=== PATIENT | male | born 1980 | race Caucasian/White ===

== ENCOUNTER 2020-09-14 23:58 | Inpatient (IN) | payer SELFPAY ==
[2020-09-15] VITALS (31 sets, daily range): BP systolic 106–134; BP diastolic 65–92; PULSE 49–98; RESP 13–21; TEMP 36.2–37.2; O2SAT 92–100; BMI 23.6
--- NOTE | 2020-09-15 00:51 | CTR_ITS ---
PROCEDURE INFORMATION: Exam: CT Abdomen And Pelvis With Contrast Exam date and time: 09/15/2020 1:10 AM Age: 40 years old Clinical indication: Abdominal pain; Localized; Right lower quadrant (rlq); Additional info: Rlq pain TECHNIQUE: Imaging protocol: Computed tomography of the abdomen and pelvis with contrast. Radiation optimization: All CT scans at this facility use at least one of these dose optimization techniques: automated exposure control; mA and/or kV adjustment per patient size (includes targeted exams where dose is matched to clinical indication); or iterative reconstruction. Contrast material: OMNI 300; Contrast volume: 95 ml; Contrast route: INTRAVENOUS (IV); COMPARISON: No relevant prior studies available. RADIATION DOSE METRICS: Total DLP (mGy-cm): 883.02 FINDINGS: Lungs: The lung bases are clear. No effusion Liver: Normal. No mass. Gallbladder and bile ducts: No wall thickening, pericholecystic fluid or stones. Pancreas: Normal. No ductal dilation. Spleen: Normal. No splenomegaly. Adrenal glands: Normal. No mass. Kidneys and ureters: Normal. No hydronephrosis. Stomach and bowel: Unremarkable. No obstruction. No mucosal thickening. Appendix: There is a large amount of pericecal and periappendiceal fat stranding and inflammatory change. There is a 31 x 17 x 9 mm periappendiceal abscess. Intraperitoneal space: Small amount of free fluid is present in the pelvis. Vasculature: Unremarkable. No abdominal aortic aneurysm. Lymph nodes: Unremarkable. No enlarged lymph nodes. Urinary bladder: Unremarkable as visualized. Reproductive: Unremarkable as visualized. Bones/joints: Unremarkable. No acute fracture. Soft tissues: Unremarkable. CT/CT abdomen pelvis w con* [id number] IMPRESSION: 1. Perforated appendicitis with 31 x 17 x 9 mm periappendiceal abscess. 2. Small amount of free fluid in the pelvis. Radiation Dose CTDIVOL = (mGy): DLP = 883.02 (mGy-cm)
[2020-09-15] MEDS: ketorolac 30 mg/mL INJ IVP (01:08)
[2020-09-15 01:23] LABS: Basophils % 0.3 %; Eosinophils # 0.2 10^3/uL (0.0-0.8); Eosinophils % 1.5 %; Hematocrit 45.6 % (42.0-52.0); Hemoglobin 14.8 g/dL (11.7-16.6); Lymphocytes # 1.4 10^3/uL (0.8-4.8); Lymphocytes % 11.1 %; Mean Corpuscular HGB Conc 32.5 g/dL (30.0-36.0); Mean Corpuscular Hemoglobin 28.6 pg (28.0-34.0); Mean Platelet Volume 10.4 fL (7.4-10.4); Monocytes # 1.3 10^3/uL (0.2-0.9); Monocytes % 10.8 %; Nucleated Red Blood Cells % 0 %; Platelet Count 239 10^3/cmm (130-400); Red Blood Count 5.18 10^6/uL (4.1-5.3); Red Cell Distribution Width 11.9 % (12.1-15.1); White Blood Count 12.4 10^3/uL (4.0-10.0)
[2020-09-15 01:41] LABS: Alanine Aminotransferase 11 U/L (0-41); Albumin Level 4.2 g/dL (3.5-5.2); Alkaline Phosphatase 83 IU/L (40-130); Aspartate Amino Transferase 14 U/L (0-40); Blood Urea Nitrogen 14 mg/dL (6-20); C Reactive Protein 73.9 mg/L (0.0-4.9); Calcium 9.6 mg/dL (8.5-10.5); Carbon Dioxide 31 mmol/L (22-29); Chloride 95 mmol/L (98-107); Globulin 3.6 g/dL (1.3-4.6); Glomerular Filtration Rate 125.5 mL/min (90-130); Glucose 110 mg/dL (65-115); Lipase 18 U/L (13-60); Osmolality Calculated 281 mOsm/kg (285-295); Sodium 135 mmol/L (136-145); Total Bilirubin 1.4 mg/dL (0.15-1.2); Total Protein 7.8 g/dL (6.6-8.7)
[2020-09-15] MEDS: iohexol 300 mg/mL 100 mL Btl IV (01:54)
--- NOTE | 2020-09-15 03:03 | PC.NURSE ---
patient refused both Zofran and Morphine at 0108
[2020-09-15] MEDS: piperacillin-tazobactam 3.375 GM in sodium chloride 0.9% (plus) 50 ML IV ×2 (04:14→15:56)
--- NOTE | 2020-09-15 06:27 | P.HP_ITS ---
Providers/Chief Complaint Admitting Physician: Kostas Hu MD Chief Complaint: lower ab pain, pt states appendicitus History of Present Illness Mr. Jimy Osborne is a pleasant 40 year old male otherwise healthy presents to the emergency department with worsening right-sided abdominal pain associated with chills and low-grade temperature. Patient reported that he thought he had some constipation and he had something for that and he moved his bowels but that did not help much with his pain. Initially had discomfort in the epigastric area and then the pain was more localized towards the right side. Pain is more dull aching and sharp and started about 4 to 5 days ago and just got worse. Patient has not referred and he decided to come to the emergency department for further evaluation and management. Further work-up in the emergency department showed leukocytosis of 12.[address] scan of the abdomen and pelvis that showed: Lungs: The lung bases are clear. No effusion Liver: Normal. No mass. Gallbladder and bile ducts: No wall thickening, pericholecystic fluid or stones. Pancreas: Normal. No ductal dilation. Spleen: Normal. No splenomegaly. Adrenal glands: Normal. No mass. Kidneys and ureters: Normal. No hydronephrosis. Stomach and bowel: Unremarkable. No obstruction. No mucosal thickening. Appendix: There is a large amount of pericecal and periappendiceal fat stranding and inflammatory change. There is a 31 x 17 x 9 mm periappendiceal abscess. Intraperitoneal space: Small amount of free fluid is present in the pelvis. Vasculature: Unremarkable. No abdominal aortic aneurysm. Lymph nodes: Unremarkable. No enlarged lymph nodes. Urinary bladder: Unremarkable as visualized. Reproductive: Unremarkable as visualized. Bones/joints: Unremarkable. No acute fracture. Soft tissues: Unremarkable. CT/CT abdomen pelvis w con* [id number] IMPRESSION: 1. Perforated appendicitis with 31 x 17 x 9 mm periappendiceal abscess. 2. Small amount of free fluid in the pelvis. General surgery was consulted for further evaluation and management Was seen and evaluated in the emergency department room #16. Review of Systems General: Reports: 10 or more systems reviewed and unremarkable except in HPI and below Medications/Allergies Home Medications Medication Instructions Recorded Confirmed Last Taken Type No Known Home Medications 09/15/20 09/15/20 Unknown History Allergies Allergy/AdvReac Type Severity Reaction Status Date / Time No Known Allergies Allergy Verified 09/15/20 06:38 Vitals/I&O/Wt Last Vital Signs Temp 98.9 F 09/15/20 00:40 Pulse 84 09/15/20 06:12 Resp 18 09/15/20 06:12 BP 106/67 09/15/20 05:32 Pulse Ox 97 09/15/20 06:12 09/14/20 09/14/20 09/15/20 14:59 22:59 07:59 Intake Total 50 / 50 Balance 50 / 50 Weight last 48 hrs Weight 155 lb Physical Exam Narrative: EXAM NARRATIVE: Patient is conscious alert oriented X3 BMI 24 Head and neck examination PERRLA no masses no cervical lymphadenopathy no jaundice Cardiac examination audible S1-S2 no murmurs no gallops no arrhythmias Chest is clear bilateral,abscence of Rhonchi or wheezes,no surgical emphysema Abdomen tender and localized guarding at the right lower quadrant with maximal tenderness at McBurney's point. Otherwise nondistended soft no organomegaly guarding or rigidity/no signs of peritonitis Extremities no cyanosis no clubbing no edema Data : 09/15/20 01:05 09/15/20 01:05 A&P Assessment and plan (1) Appendicitis with abscess: After thorough history physical examination and reviewing the chart and images with my personal interpretion, I counseled the patient for laparoscopic appendectomy possible open. Indications, risks, benefits and alternatives were all discussed with the patient and did agree to proceed. Rationale was carefully and clearly discussed with the patient.Appropriate informed consent have been reviewed and signed I Did explain for the patient and his spouse about the potential placement of a drain intraoperatively and the future potential need for surgeries and also the higher chance of risk of injury to the surrounding bowel and conversion to open.Patient understands and he would like to proceed accordingly. Status: Acute Attestations Medical Necessity Statement*: Inpatient hospital station for perioperative care requiring parenteral antimicrobial therapy. Time Spent in Patient Care: (>than 50% of time spent in counselling and/or direct pt care on unit) . Coding Level of Care Code Acute Wire Stitcher Operator for Emilia Frye Diagnoses Appendicitis with abscess K35.33
--- NOTE | 2020-09-15 07:48 | PC.NURSE ---
Pt arrived right at shift change , pt was oriented to equipment and then surgery took pt down to surgery,
[2020-09-15] MEDS: sodium chloride 0.9% 1,000 ML 30 ML IV (07:50)
--- NOTE | 2020-09-15 07:53 | ANES.PREANE2 ---
Pre-Anesthetic Assessment Pre-Anesthetic Assessment: Height/Weight: Height 1.73 m Weight 70.307 kg Temp Pulse Resp BP Pulse Ox 98.9 F 84 18 106/67 97 09/15/20 00:40 09/15/20 06:12 09/15/20 06:12 09/15/20 05:32 09/15/20 06:12 Proposed Procedure: Operation Date: 09/15/20 08:20 Proposed Procedures p Laparoscopic Appendectomy(Not Applicable) - Kostas Hu MD Was Beta Jarod taken within 24 hours: N/A Social: Social History: No alcohol and No tobacco Exam: Pre-Anes Outpt Exam: alert, oriented x 3, clear to auscultation bilaterally and regular rate & rhythm Airway: Submandibular: WNL Cervical ROM: WNL MP: 2 Dentition: Full History/ROS: No significant history except as noted GI: Comments: Acute abdomen Anesthetic Plan: ASA status: 1E Anesthesia: General (RSI) Risk of > 500 ml blood loss (7ml/kg in children): No Data Anesthesia CBC & Chem 7: 09/15/20 01:05 09/15/20 01:05 Other Labs: Laboratory Results - last 48 hr 09/15/20 09/15/20 01:05 01:05 WBC 12.4 H RBC 5.18 Hgb 14.8 Hct 45.6 MCV 88.0 MCH 28.6 MCHC 32.5 RDW 11.9 L Plt Count 239 MPV 10.4 Neut % (Auto) 76.0 Lymph % (Auto) 11.1 [place] % (Auto) 10.8 Eos % (Auto) 1.5 Baso % (Auto) 0.3 Neut # (Auto) 9.40 H Lymph # (Auto) 1.4 [place] # (Auto) 1.3 H Eos # (Auto) 0.2 Baso # (Auto) 0.0 Nucleated RBC % (auto) 0 Nucleated RBCs # 0.0 Sodium 135 L Potassium 4.0 Chloride 95 L Carbon Dioxide 31 H Anion Gap 13.0 BUN 14 Creatinine 0.7 GFR Calculation 125.5 Glucose 110 Calculated Osmolality 281 L Calcium 9.6 Total Bilirubin 1.4 H AST 14 ALT 11 Alkaline Phosphatase 83 C-Reactive Protein 73.9 H Total Protein 7.8 Albumin 4.2 Globulin 3.6 Lipase 18 Cardiac Studies: No Data to Display
--- NOTE | 2020-09-15 08:17 | SUR.PHASEI ---
0812 PT TO OR PER CART PT AT BEDSIDE, NOW TAKEN TO WAITING ROOM, PT AWAKE ALERT TALKATIVE IV OF NS AT KVO UP AND OFIRMEV INFUSING, VSS
--- NOTE | 2020-09-15 08:28 | W.ED.ABDPA2 ---
HPI - Abdominal Pain General: Chief Complaint: Abdominal Pain Stated Complaint: lower ab pain, pt states appendicitus Time Seen by Provider: 09/15/20 00:51 History of Present Illness: HPI narrative: 40-year-old healthy male presents with right lower quadrant pain for 3 to 4 days. He has been running a low-grade fever. He notes that stretching out hurts his belly, so he has been walking bent forward. No history of belly surgeries. He has been nauseated but has not vomited. No diarrhea. He took magnesium citrate with no relief. MD elicited complaint: abdominal pain Pertinent past history: none Onset (ago): day(s) Pain Consistency: constant Location: RLQ Severity: severe Quality: stabbing Radiation: none Migration to: periumbilical Exacerbating factors: movement Relieving factors: nothing Associated Symptoms: Reports nausea; Denies chills, dysuria, fever(s), hematuria and melena Review of Systems Const: Denies: fever(s) or chills Eyes: Denies: change in vision ENMT: Denies: odynophagia or sinus pain Card: Denies: chest pain or palpitations Resp: Denies: dyspnea or productive cough GI: Reports: abdominal pain and nausea; Denies: melena : Denies: difficulty urinating, dysuria or hematuria Musc: Denies: back pain Skin/Breast: Denies: rash, pruritus or erythema Neuro: Denies: headache(s) or dizziness Psych: Denies: anxiety Physical Exam Const: GENERAL APPEARANCE: well developed ORIENTATION/CONSCIOUSNESS: Yes oriented to person, Yes oriented to place and Yes oriented to time HENMT: COMMON NORMALS: normocephalic, external ears normal and Normal external nose present HEAD & SCALP: normocephalic FACE & SINUS: normal facial exam NOSE: Normal external nose present and No nasal discharge present EXTERNAL EAR: Yes external ears normal Eye: COMMON NORMALS: Equal, round and reactive pupils present, EOMs intact bilaterally and conjunctivae normal EYELID: eyelids normal CONJUNCTIVA: Yes conjunctivae normal PUPIL: Yes Equal, round and reactive pupils present Neck/C-Spine: GENERAL: No tracheal deviation Chest: COMMONS NORMALS: normal inspection of the chest CHEST: No tenderness Resp: COMMON NORMALS: clear to auscultation bilaterally EFFORT & INSPECTION: No tachypneic, No respiratory distress, No retractions, No uses accessory muscles and No tracheal deviation AUSCULTATION: clear to auscultation bilaterally, no rhonchi, no wheezes and lung sounds not diminished Cardio: COMMON NORMALS: regular rate and regular rhythm RATE: regular rate RHYTHM: regular rhythm HEART SOUNDS: no murmurs PERIPHERAL PULSES: radial pulses present GI: INSPECTION: No abdominal distension AUSCULTATION: No Hyperactive bowel sounds present and No Hypoactive bowel sounds present PALPATION: Yes Tenderness to palpation present (GI) Details: RLQ, Yes Guarding due to palpation present (GI), No Rigid due to palpation and Yes Rebound tenderness present PERCUSSION: no dullness to percussion and no tympanic to percussion Neuro: SENSORIUM/ORIENTATION: Yes oriented to person, Yes oriented to place and Yes oriented to time Psych: COMMON NORMALS: mental status grossly normal Skin: COMMON NORMALS: no rashes or lesions noted GENERAL SKIN EXAM: no rashes or lesions noted Course Consultations: Consultation #1: giurgius Vital Signs: Vital signs: Vital Signs Temperature 98.4 F 09/15/20 07:40 Pulse Rate 74 09/15/20 07:40 Respiratory Rate 18 09/15/20 07:40 Blood Pressure 111/65 09/15/20 07:40 Pulse Oximetry 97 09/15/20 07:40 MDM - Abdominal Pain MDM Narrative: Medical decision making narrative: 40-year-old male with right lower quadrant pain, white blood cell count of 12.4. He has acute appendicitis by CT with localized perforation and abscess. Surgery called, and they will admit. Surgery at 8 AM. Lab Data: Labs: Lab Results 09/15/20 09/15/20 Range/Units 01:05 01:05 WBC 12.4 H (4.0-10.0) 10^3/ uL RBC 5.18 (4.1-5.3) 10^6/u L Hgb 14.8 (11.7-16.6) g/dL Hct 45.6 (42.0-52.0) % MCV 88.0 (80-94) fL MCH 28.6 (28.0-34.0) pg MCHC 32.5 (30.0-36.0) g/dL RDW 11.9 L (12.1-15.1) % Plt Count 239 (130-400) 10^3/c mm MPV 10.4 (7.4-10.4) fL Neut % (Auto) 76.0 % Lymph % (Auto) 11.1 % [place] % (Auto) 10.8 % Eos % (Auto) 1.5 % Baso % (Auto) 0.3 % Neut # (Auto) 9.40 H (1.8-7.7) 10^3/u L Lymph # (Auto) 1.4 (0.8-4.8) 10^3/u L K[place]t # (Auto) 1.3 H (0.2-0.9) 10^3/u L Eos # (Auto) 0.2 (0.0-0.8) 10^3/u L Baso # (Auto) 0.0 (0.0-0.1) 10^3/u L Nucleated RBC % (a uto) 0 % Nucleated RBCs # 0.0 /100WBC Sodium 135 L (136-145) mmol/L Potassium 4.0 (3.5-5.1) mmol/L Chloride 95 L (98-107) mmol/L Carbon Dioxide 31 H (22-29) mmol/L Anion Gap 13.0 (5-19) BUN 14 (6-20) mg/dL Creatinine 0.7 (0.7-1.2) mg/dL GFR Calculation 125.5 (90-130) mL/min Glucose 110 (65-115) mg/dL Calculated Osmolal ity 281 L (285-295) mOsm/k g Calcium 9.6 (8.5-10.5) mg/dL Total Bilirubin 1.4 H (0.15-1.2) mg/dL AST 14 (0-40) U/L ALT 11 (0-41) U/L Alkaline Phosphata se 83 (40-130) IU/L C-Reactive Protein 73.9 H (0.0-4.9) mg/L Total Protein 7.8 (6.6-8.7) g/dL Albumin 4.2 (3.5-5.2) g/dL Globulin 3.6 (1.3-4.6) g/dL Lipase 18 (13-60) U/L Discharge Plan Discharge Patient Disposition: Admitted As Inpatient Admit Provider: Kostas Hu Clinical Impression: Acute appendicitis Qualifiers: Acute appendicitis type: with localized peritonitis Appendicitis gangrene presence: without gangrene Appendicitis perforation presence: with perforation Appendicitis abscess presence: with abscess Qualified Code(s): K35.33 - Acute appendicitis with perforation and localized peritonitis, with abscess Condition: Stable Coding Level of Care Code ED Nuclear Engineering Technician for Chg Fwd Exam Comprehensive
[2020-09-15] MEDS: lidocaine 2% INJ 20 mL INJECTION (10:04)
--- NOTE | 2020-09-15 10:07 | PM.OP ---
Operative Report Date of procedure: September 15, 2020 Pre-op Diagnosis: Acute appendicitis with abscess Post-op diagnosis: same Procedure Done: Laparoscopic appendectomy and drainage of intra-abdominal abscess Placement of intra-abdominal drain Peritoneal lavage Implants: 15 [place]ian rounded Demetrius drain Specimens removed/disposition: Appendix Surgeon: Kostas Hu Top Precipitator Operator Helper: Surgical taran Blanco Circulating nurse Karine Anesthesia: General ([employer] EQUIPMENT MAINT TECH Alyssa) Estimated blood loss (mL): 100 IV fluids (mL): 700 Complications: No immediate complication Condition: stable Disposition: floor Brief History: After thorough history physical examination and reviewing the chart and images with my personal interpretion, I counseled the patient for laparoscopic appendectomy possible open. Indications, risks, benefits and alternatives were all discussed with the patient and did agree to proceed. Rationale was carefully and clearly discussed with the patient.Appropriate informed consent have been reviewed and signed Procedure: Intra-abdominal abscess with perforated appendicitis encased by surrounding bowel loops Retrocecal acute appendicitis with suppuration and pus about 20 mL Inflamed indurated surrounding cecal area otherwise healthy looking: Patient after being identified in the holding area and asked to void urine, and informed consent per chart ,patient was then taken back to the OR placed in supine position got intubated by anesthesia left arm was tucked tucked ,Timeout was done verifying the patient's name/date of /planned procedure and destination after the procedure, all were in agreement., preoperative antibiotics administered per protocol. prep and drape of the abdomen was done under the usual sterile technique. Started by longitudinal skin incision supraumbilical using a Burrell trocar technique safe entry to the abdominal cavity was achieved verified by using 10 mm zero degree laparoscopy, switched to a 30? scope under direct visualization a suprapubic 5 mm trocar was inserted followed by another 5 mm trocar inserted in the left lower quadrant, I was able to position the patient in an T [place] and left side down. [facility] of [facility] did inflammatory phlegmon towards the right lower quadrant encasing the appendicitis with periappendiceal abscess.No evidence of cecal masses.Started dissection of the perforated acutely inflamed appendix there was some adhesions towards the lateral pelvic wall that was taken down by sharp and blunt dissection, more dissection was done cautiously to dissect the appendix from the surrounding inflamed tissues and pockets of pus were drained about 10 to 15 mL of pus.I was able to identify the structure of the appendix. Dissection of the mesoappendix was done using energy device Voyant under direct visualization. Attention was deviated to the healthy base of the appendix where I had to switch the camera to 5 mm 30? scope got introduced through the left lower quadrant and through the Burrell trocar under direct visualization a GI stapler 45 mm blue load was applied at the healthy part of the base of the appendix, the appendix was then retrieved in an Endo Catch bag, final survey was done of the abdomen and pelvis. Copious and thorough irrigation with warm saline, and suction was obtained. Multiple 5 mm clips were applied onto the mesoappendix as well as the appendectomy staple line and a right lateral pelvic wall for minimal oozing. I decided to apply a figure of eight 2-0 silk sutures under direct visualization to approximate the inflamed tissues together For hemostasis purposes. Final look laparoscopy was done showing no other abnormalities or injuries.Because of the extensive inflammation and dissection I elected to place a 15 [place]ian round Demetrius drain via the suprapubic 5 mm trocar site under direct vision and stitches to the abdominal wall using 2-0 nylon, the drain was placed towards the pelvis and right paracolic gutter. Appropriate hemostasis was achieved. All trocars were taken out under direct visualization after the supraumblical trocar site was closed by #1 PDS sutures under direct vision using fascial closure device prior to placement of the drain,followed by irrigation of all trocar incision sites then skin closure using skin maida of all trocar site incisions.Infiltration of local lidocaine 2% was done to all incision sites.Dry dressing was applied. Count was completed at the end of the procedure for [place],sponges and instruments Patient tolerated the procedure well and was transferred to the recovery area after extubation. I was present for the whole entire procedure
[2020-09-15] MEDS: fentaNYL 50 mcg/mL INJ 2mL 100 MCG IVP (10:58)
--- NOTE | 2020-09-15 11:11 | ANE.PACU2 ---
Inpatient post-anesthesia follow up: Airway intact: Yes Vital signs: Temperature 98.4 F Pulse Rate [Monito r] 87 Pulse Rate 74 Respiratory Rate 18 Blood Pressure [Le ft Arm] 127/85 Blood Pressure 111/65 Pulse Oximetry 97 Oxygen Delivery Me thod Room Air Oxygen Flow Rate Fraction of Inspir ed Oxygen Hydration adequate: Yes Nausea and vomiting: No Pain level: 3 Additional Comments: Sedated
--- NOTE | 2020-09-15 11:17 | SUR.PHASEI ---
1019PT TO OPS 10 WITH ORAL AIRWAY GOOD RESP EFFORT PT DOES NOT AWAKE TO VOICE OR TOUCH, DRESSING TO ABD AROUND DRAIN SATURATED REINFORCED WITH ABD , ALSO BECOMING SATURATED, DRAIN DECOMPRESSED MULTIPLE TIMES, SMALL AMT SEROSANUINOUS FLUID BUT DOES NOT HOLD COMPRESSING OR NURSE TO BEDSIDE TO ASSESS. STATES THAT THE DRAIN WAS CHECKED IN OR AND BULB CHANGED 1057 DR CHEUNG AT BEDSIDE WILL ADJUST DRAIN , TECH CALLED TO BEDSIDE, SEE FENTANYL GIVEN PT IS STARTING TO AWAKE, ORAL AIRWAY OUT. 1115 DRAIN SECURED WITH STITCHES X 2 AT BEDSIDE, STERILE TECHNIQUE USED PER DR CHEUNG PT SLEEPS QUIETLY SEE FENTANYL GIVEN 1120 PT ON RA VSS.
[2020-09-15] MEDS: ondansetron 2 mg/ML SDV 2 mL 4 MG IVP (11:53)
[2020-09-15] MEDS: scopolamine 1.5 Patch 1 PATCH TRANSDERMA (11:54)
[2020-09-15 11:57] LABS: Glucose Point of Care 124 mg/dL (70-110)
[2020-09-15] MEDS: lactated ringers 1,000 ML 125 ML IV ×2 (12:01→19:29)
[2020-09-15] MEDS: morphine 4 mg/mL SDV 1 mL IVP (12:09)
[2020-09-15] MEDS: metoclopramide 5 mg/mL SDV 2 mL IVP (14:49)
[2020-09-15] MEDS: HYDROcodone-acetaminophen 5-325 mg Tablet 1 TAB PO ×2 (15:57→23:41)
[2020-09-16] VITALS: BP 114/66; PULSE 70; RESP 17; TEMP 36.7; O2SAT 95
[2020-09-16] MEDS: piperacillin-tazobactam 3.375 GM in sodium chloride 0.9% (plus) 50 ML IV ×4 (00:50→23:51)
[2020-09-16 04:00] VITALS: BP 125/71; PULSE 70; RESP 17; TEMP 36.4; O2SAT 95
[2020-09-16] MEDS: lactated ringers 1,000 ML 125 ML IV (04:32)
[2020-09-16 05:23] LABS: Basophils % 0.1 %; Hematocrit 38.3 % (42.0-52.0); Hemoglobin 12.4 g/dL (11.7-16.6); Lymphocytes # 0.8 10^3/uL (0.8-4.8); Lymphocytes % 5.8 %; Mean Corpuscular HGB Conc 32.4 g/dL (30.0-36.0); Mean Corpuscular Volume 89.7 fL (80-94); Mean Platelet Volume 10.8 fL (7.4-10.4); Monocytes # 1.2 10^3/uL (0.2-0.9); Monocytes % 9.2 %; Neutrophils % 84.5 %; Nucleated Red Blood Cells % 0 %; Platelet Count 213 10^3/cmm (130-400); Red Blood Count 4.27 10^6/uL (4.1-5.3); White Blood Count 13.4 10^3/uL (4.0-10.0)
[2020-09-16 05:44] LABS: Anion Gap 11.9 (5-19); Blood Urea Nitrogen 13 mg/dL (6-20); Calcium 8.3 mg/dL (8.5-10.5); Carbon Dioxide 27 mmol/L (22-29); Chloride 99 mmol/L (98-107); Glomerular Filtration Rate 125.5 mL/min (90-130); Glucose 140 mg/dL (65-115); Osmolality Calculated 280 mOsm/kg (285-295); Potassium 3.9 mmol/L (3.5-5.1); Sodium 134 mmol/L (136-145)
--- NOTE | 2020-09-16 06:00 | P.PN_ITS ---
Subjective Subjective: Interval history: Patient overall feels better and minimal serosanguineous output per drain, continue to have stable vital signs and adequate urine output. WBC 13.4 slightly trending up Medications: Reviewed: Yes Vitals/I&O/Wt Last Vital Signs Temp 97.6 F 09/16/20 04:00 Pulse 70 09/16/20 04:00 Resp 17 09/16/20 04:00 BP 125/71 09/16/20 04:00 Pulse Ox 95 09/16/20 04:00 09/15/20 09/15/20 09/16/20 14:59 22:59 06:59 Intake Total 273 / 273 1103.333 / 0062.153 4200 / 2666.333 Output Total 110 / 110 665 / 775 655 / 1430 Balance 163 / 163 438.333 / 601.333 635 / 1236.333 Weight last 48 hrs Weight 155 lb Physical Exam Narrative: EXAM NARRATIVE: Patient is conscious alert oriented X3 BMI 24 Head and neck examination PERRLA no masses no cervical lymphadenopathy no jaundice Cardiac examination audible S1-S2 no murmurs no gallops no arrhythmias Chest is clear bilateral,abscence of Rhonchi or wheezes,no surgical emphysema Abdomen nontender except mildly at the incision site nondistended soft no organomegaly guarding or rigidity/no signs of peritonitis. Lower abdominal drain in place with serosanguineous output Extremities no cyanosis no clubbing no edema Data : 09/16/20 04:17 09/16/20 04:17 A&P Assessment and plan (1) Appendicitis with abscess: Will advance to full liquid diet and add protein shakes to the patient Encourage ambulation Incentive spirometer every hour Drain teaching and education We will continue parenteral antimicrobial therapy due to the complicated nature of the appendicitis with abscess formation. Repeat blood work in the morning. Assurance and education All questions have been answered and all concerns have been addressed to patient's satisfaction. Status: Acute Attestations Medical Necessity Statement*: Continue inpatient hospitalization for parenteral antimicrobial therapy and perioperative care including drain management Time Spent in Patient Care: (>than 50% of time spent in counselling and/or direct pt care on unit) . Coding Level of Care Code Acute Farmworkers for [facility] Fwd Diagnoses Appendicitis with abscess K35.33
[2020-09-16] MEDS: HYDROcodone-acetaminophen 5-325 mg Tablet 1 TAB PO ×3 (06:51→19:32)
[2020-09-16 07:53] VITALS: BP 135/82; PULSE 67; RESP 19; TEMP 37.2; O2SAT 95
--- NOTE | 2020-09-16 10:10 | PC.CHAP ---
Pastoral Care Encounter/Spiritual Assessment Type of Contact [] Declined short goods drier visit [] Patient/Family/Request visit [] Outpatient visit [] Follow-up visit [] Physician referral [] Code/Alert [x] Routine visit [] Staff referral [] Actively dying [] Patient sleeping [] Family support [] [] Out of room [] Palliative care [] [] Receiving care in room [] Pre-surgical visit [] Trauma [] Long length of stay [] ICU visit [] Other: Relational/Emotional Strength [x] Patient feels connected with others/family/visitors/staff [] Distress [] Loneliness/isolation [] Abandonment Spirituality of Patient [x] Person of Angelina [x] Attends Muslim of their [place] [x] Believes in Prayer [x] Reads Bible or Pentecostal materials [] There are Spiritual issues to be addressed Hydrotherapist Interventions [x] Prayer [x] Active listening [x] Non-anxious presence [c] Spiritual/emotional support [c] Crisis/trauma care [] Spiritual counseling [] Bereavement support [] Provided bereavement packet [] Provided Bible/devotional materials [] Provided toy/stuffed animal, coloring book to patient or family member [] Provided Communion [] Anointing/[place] [] Salvation [] Completed spiritual assessment [] Other: Impact on Illness or Injury [] Angry [] Fearful [] Anxious [] Often cries [] Exhaustion [] Unable to work [] Unable to attend christian [] Unable to walk/stand [] Unable to read [] Unable to drive [] Unable to eat/drink [] Unable to sleep [] Unable to be with family [] Patient intubated [] Other: Summary patient having less pain Time spent with patient 20 min
[2020-09-16 11:34] VITALS: BP 114/74; PULSE 68; RESP 20; TEMP 37.2; O2SAT 95
[2020-09-16 15:30] VITALS: BP 114/71; PULSE 78; RESP 18; TEMP 37.2; O2SAT 97
[2020-09-16 19:48] VITALS: BP 133/78; PULSE 76; RESP 17; TEMP 36.9; O2SAT 96
[2020-09-17] VITALS (7 sets, daily range): BP systolic 99–123; BP diastolic 62–76; PULSE 67–77; RESP 16–19; TEMP 36.7–37.7; O2SAT 94–97
[2020-09-17 02:20] LABS: Basophils % 0.2 %; Eosinophils # 0.1 10^3/uL (0.0-0.8); Eosinophils % 0.6 %; Hematocrit 38.9 % (42.0-52.0); Hemoglobin 12.4 g/dL (11.7-16.6); Lymphocytes # 0.9 10^3/uL (0.8-4.8); Lymphocytes % 8.1 %; Mean Corpuscular HGB Conc 31.9 g/dL (30.0-36.0); Mean Corpuscular Hemoglobin 28.4 pg (28.0-34.0); Mean Corpuscular Volume 89.2 fL (80-94); Mean Platelet Volume 9.9 fL (7.4-10.4); Monocytes # 1.2 10^3/uL (0.2-0.9); Monocytes % 10.6 %; Neutrophils # 8.99 10^3/uL (1.8-7.7); Neutrophils % 80.2 %; Nucleated Red Blood Cells % 0 %; Platelet Count 212 10^3/cmm (130-400); Red Blood Count 4.36 10^6/uL (4.1-5.3); Red Cell Distribution Width 11.9 % (12.1-15.1); White Blood Count 11.2 10^3/uL (4.0-10.0)
[2020-09-17 02:41] LABS: Anion Gap 9.9 (5-19); Blood Urea Nitrogen 11 mg/dL (6-20); Calcium 8.7 mg/dL (8.5-10.5); Carbon Dioxide 30 mmol/L (22-29); Chloride 99 mmol/L (98-107); Glomerular Filtration Rate 125.5 mL/min (90-130); Glucose 111 mg/dL (65-115); Osmolality Calculated 280 mOsm/kg (285-295); Potassium 3.9 mmol/L (3.5-5.1); Sodium 135 mmol/L (136-145)
[2020-09-17] MEDS: lactated ringers 1,000 ML 75 ML IV (04:37)
--- NOTE | 2020-09-17 05:22 | PM.PN ---
Subjective Subjective: Interval history: Patient overall feels better and passing some gas. WBC count trending down. Adequate urine output. And no recorded fevers. Stable vital signs. Total of drain output about 115 mL serous with tinge of sanguinous output Medications: Reviewed: Yes Vitals/I&O/Wt Last Vital Signs Temp 99 F 09/17/20 04:00 Pulse 68 09/17/20 04:00 Resp 17 09/17/20 04:00 BP 117/76 09/17/20 04:00 Pulse Ox 95 09/17/20 04:00 09/16/20 09/16/20 09/17/20 14:59 22:59 06:59 Intake Total 650 / 650 920 / 1570 105 / 1675 Output Total 1220 / 1220 1250 / 2470 Balance -570 / -570 -330 / -900 105 / -795 Physical Exam Narrative: EXAM NARRATIVE: Patient is conscious alert oriented X3 BMI 24 Head and neck examination PERRLA no masses no cervical lymphadenopathy no jaundice Cardiac examination audible S1-S2 no murmurs no gallops no arrhythmias Chest is clear bilateral,abscence of Rhonchi or wheezes,no surgical emphysema Abdomen nontender nondistended soft no organomegaly guarding or rigidity/no signs of peritonitis Drain in place with mostly serous output Incisions are clean dry and intact and skin maida in place, no evidence of site infection Extremities no cyanosis no clubbing no edema Data : 09/17/20 02:11 09/17/20 02:11 A&P Assessment and plan (1) Appendicitis with abscess: Will advance to full liquid diet and add protein shakes to the patient Encourage ambulation Incentive spirometer every hour Drain teaching and education We will continue parenteral antimicrobial therapy for now due to the complicated nature of the appendicitis with abscess formation. We will reevaluate the patient through the day for potential discharge home Assurance and education All questions have been answered and all concerns have been addressed to patient's satisfaction. Status: Acute Attestations Medical Necessity Statement*: Continue inpatient hospitalization for parenteral antimicrobial therapy and perioperative care including drain management Other Attestations: We will reevaluate the patient through the day for potential discharge home Coding Level of Care Code Acute Nursing Service Director for [facility] Diagnoses Appendicitis with abscess K35.33
[2020-09-17] MEDS: piperacillin-tazobactam 3.375 GM in sodium chloride 0.9% (plus) 50 ML IV ×2 (08:08→16:14)
[2020-09-17] MEDS: HYDROcodone-acetaminophen 5-325 mg Tablet 1 TAB PO ×2 (09:16→18:20)
[2020-09-17] MEDS: ondansetron 2 mg/ML SDV 2 mL 4 MG IVP (16:13)
[2020-09-18] MEDS: piperacillin-tazobactam 3.375 GM in sodium chloride 0.9% (plus) 50 ML IV (01:32)
[2020-09-18 03:01] LABS: Basophils % 0.3 %; Eosinophils # 0.4 10^3/uL (0.0-0.8); Eosinophils % 3.6 %; Hematocrit 41.1 % (42.0-52.0); Hemoglobin 12.9 g/dL (11.7-16.6); Lymphocytes # 1.4 10^3/uL (0.8-4.8); Lymphocytes % 12.7 %; Mean Corpuscular HGB Conc 31.4 g/dL (30.0-36.0); Mean Corpuscular Hemoglobin 28.4 pg (28.0-34.0); Mean Corpuscular Volume 90.5 fL (80-94); Mean Platelet Volume 9.6 fL (7.4-10.4); Monocytes % 8.8 %; Neutrophils # 8.08 10^3/uL (1.8-7.7); Neutrophils % 74.2 %; Nucleated Red Blood Cells % 0 %; Platelet Count 275 10^3/cmm (130-400); Red Blood Count 4.54 10^6/uL (4.1-5.3); Red Cell Distribution Width 11.9 % (12.1-15.1); White Blood Count 10.9 10^3/uL (4.0-10.0)
[2020-09-18 03:15] LABS: Anion Gap 11.7 (5-19); Blood Urea Nitrogen 11 mg/dL (6-20); Calcium 9.3 mg/dL (8.5-10.5); Carbon Dioxide 33 mmol/L (22-29); Chloride 95 mmol/L (98-107); Glomerular Filtration Rate 125.5 mL/min (90-130); Glucose 111 mg/dL (65-115); Osmolality Calculated 282 mOsm/kg (285-295); Potassium 3.7 mmol/L (3.5-5.1); Sodium 136 mmol/L (136-145)
[2020-09-18 03:33] VITALS: BP 103/64; PULSE 70; RESP 18; TEMP 36.9; O2SAT 96
--- NOTE | 2020-09-18 07:21 | P.PN_ITS ---
Subjective Subjective: Interval history: Patient overall feels well and continues to have serous output per drain. Passed a little gas yesterday earlier but not through the night. No acute events otherwise, WBC count 10.9 Patient reported that he is very sensitive to narcotics and he would prefer plain Tylenol Medications: Reviewed: Yes Vitals/I&O/Wt Last Vital Signs Temp 98.4 F 09/18/20 03:33 Pulse 70 09/18/20 03:33 Resp 18 09/18/20 03:33 BP 103/64 09/18/20 03:33 Pulse Ox 96 09/18/20 03:33 09/17/20 09/18/20 09/18/20 22:59 06:59 14:59 Intake Total 410 / 640 901.25 / 1541.25 Output Total 1075 / 1395 650 / 2045 Balance -665 / -755 251.25 / -503.75 Physical Exam Narrative: EXAM NARRATIVE: Patient is conscious alert oriented X3 BMI 24 Head and neck examination PERRLA no masses no cervical lymphadenopathy no jaundice Abdomen nontender nondistended soft no organomegaly guarding or rigidity/no signs of peritonitis Drain in place with serous output Incisions are clean dry and intact and skin maida in place, no evidence of site infection Extremities no cyanosis no clubbing no edema Data : 09/18/20 02:38 09/18/20 02:38 A&P Assessment and plan (1) Appendicitis with abscess: Will advance to full liquid diet and add protein shakes to the patient Encourage ambulation Incentive spirometer every hour Drain teaching and education Glycerin suppository x1 We will plan to discharge patient home today on oral antimicrobial therapy Assurance and education All questions have been answered and all concerns have been addressed to patient's satisfaction. Status: Acute Attestations Medical Necessity Statement*: Patient maintained to be in observation status for parenteral antimicrobial therapy and drain management. Also repeat blood work and monitor trending down of WBC count. Time Spent in Patient Care: (>than 50% of time spent in counselling and/or direct pt care on unit) . Other Attestations: Patient is appropriate to be discharged home today on oral antibiotics Coding Level of Care Code Acute Surgical Instrument Mechanic for [facility] Diagnoses Appendicitis with abscess K35.33
--- NOTE | 2020-09-18 07:43 | P.SS_ITS ---
Short Stay Summary Providers Date of Admit/Discharge: 09/18/20 Attending Provider: Kostas Hu MD Chief Complaint: lower ab pain, pt states appendicitus HPI History of Present Illness Jimy Osborne is a 40 year old male presented with worsening abdominal pain and was found to have acute appendicitis with abscess formation. Patient was admitted on my service for observation status and was taken for surgery for laparoscopic appendectomy and drainage of intra-abdominal abscess. Review of Systems General: Reports: 10 or more systems reviewed and unremarkable except in HPI and below Home Meds/Allergies Home Medications and Allergies Allergies Allergy/AdvReac Type Severity Reaction Status Date / Time No Known Allergies Allergy Verified 09/15/20 06:38 PFSH Acute PFSH: Medical History (Updated 09/18/20 @ 07:44 by Kostas Hu MD) Appendicitis with abscess Condition resolved and will plan to send the patient home today Vitals/I&O/Wt Last Vital Signs Temp 98.4 F 09/18/20 03:33 Pulse 70 09/18/20 03:33 Resp 18 09/18/20 03:33 BP 103/64 09/18/20 03:33 Pulse Ox 96 09/18/20 03:33 09/17/20 09/18/20 09/18/20 22:59 06:59 14:59 Intake Total 410 / 640 901.25 / 1541.25 Output Total 1075 / 1395 650 / 2045 Balance -665 / -755 251.25 / -503.75 Hospital Course Hospital Course Patient overall did well after surgery and continue to be on parenteral antimicrobial therapy because of the nature of the complicated appendicitis with abscess formation. Maintained to have stable vital signs and adequate urine output. Adequate drain care and teaching. Patient tolerating p.o. intake and passing gas and pain under control. Discharge Summary This is a pleasant 40 years old gentleman presenting with acute appendicitis with abscess formation. Undergone uneventful laparoscopic appendectomy with intra-abdominal abscess drainage and placement of a drain. Hospital course was on eventful and patient meets the appropriate criteria for safe discharge home today on oral antibiotics. SSS Data Data Completed and Pending: Completed Studies During Hospitalization Category Date Time Status CT abdomen pelvis w con* [id number] Urge nt Cat Scan 09/15/20 00:51 Completed Pathology: Surgic al [PTH] Routine Pth 09/15/20 10:23 Completed Pending at discharge Category Date Time Status ES surgery / GI i michael Routine Exams 09/15/20 07:43 Taken Diagnoses at Discharge Discharge Diagnosis (1) Appendicitis with abscess: Status: Resolved Permanent problem details: Condition resolved and will plan to send the patient home today Discharge Plan Discharge Patient Disposition: Home Condition: Stable Prescriptions: New ciprofloxacin HCl 500 mg tablet 500 mg PO Q12H 7 Days Qty: 14 RF: 0 Flagyl 500 mg tablet 500 mg PO Q8H 7 Days Qty: 21 RF: 0 Discharge Orders: Discharge Order (Routine); Ordered 09/18/20 Ordered By: Kostas Hu Referrals: Kostas Hu MD [Physician] - (Return to surgery office in 1 week) Discharge Diet: Advance as tolerated Discharge Activity: Limit activity as instructed Activity Restrictions/Additional Instructions: 1. Patient can shower after 48 hours from surgery 2. Drain teaching and education 3. Up and walking as tolerated 4. Do not lift more than 5 pounds first 2 weeks after surgery and not more than 25 pounds 6 to 8 weeks after surgery. 5. Do not operate heavy machinery or drive while using pain medications. 6.Contact the office or return to the ER for worsening nausea vomiting fevers or chills, or noticing any redness around incision sites or discharge. 7. Avoid constipation Attestations Medical Necessity Statement*: Patient maintained to be in observation status for parenteral antimicrobial therapy and drain care. Time Spent in Patient Care*: less than 30 min Specific Discharge Activities: Specific discharge activities: educating patient and educating and/or supporting family/caregiver Status at Discharge: Cognitive status at discharge: cognitively intact , Behavioral status at discharge: cooperative , Functional status at discharge: independent ambulation Overall status at discharge: patient is progressing back to baseline Quality Metrics Clinical Quality Measures: During this hospital stay, did patient experience: None Coding Level of Care Code Acute Optomechanical Engineer for [facility] Diagnoses Appendicitis with abscess K35.33
[2020-09-18 08:00] VITALS: BP 129/81; PULSE 60; RESP 18; TEMP 37.4; O2SAT 91
[2020-09-18] MEDS: glycerin adult supp 1 EACH PR (08:28)
[2020-09-18 11:06] VITALS: BP 118/84; PULSE 78; RESP 17; TEMP 37.5; O2SAT 96
[2020-09-18 11:15] VITALS: BP 118/84; PULSE 78; RESP 17; TEMP 37.5; O2SAT 96
== END 2020-09-18 11:16 | disposition home or self-care (01) | DRG 340 ==
LOC: ER 09-15 05:35 → MEDSURG 09-15 06:21
PROVIDERS: Nurse Practitioner Family; Admitting Provider Surgery; Emergency Provider Emergency Medicine; Visit Provider Surgery
PROC: 0DTJ4ZZ Resection of Appendix, Percutaneous Endoscopic Approach (ICD-10-PCS; CPT 44970; principal; 2020-09-15 08:00)
DX: K35.33 Acute appendicitis with perforation, localized peritonitis, and gangrene, with abscess (principal)
CPT/HCPCS: 36415; 36416; 74177; 80048; 80053; 82962; 83690; 85025; 86140; 88304; 96365; 96375; 99285; J0131; J0330; J0690; J1100; J1885; J2270; J2405; J2543; J2704; J2765; J3010; J3490; J7030; Q9967